=== PATIENT | female | born 2000 | race Caucasian/White ===

== ENCOUNTER 2024-11-19 11:11 | Outpatient (CLI) | payer BC | END 2024-11-19 11:12 | disposition home or self-care (01) | LOC: BICRAD 11:11 | PROVIDERS: ATTEND Family Medicine | DX: M79.671 Pain in right foot (principal) ==

== ENCOUNTER 2025-06-04 14:32 | Outpatient (CLI) | payer BC | END 2025-06-04 14:33 | disposition home or self-care (01) | LOC: ULT 14:32 | PROVIDERS: ATTEND Family Medicine | DX: N92.6 Irregular menstruation, unspecified (principal) | CPT/HCPCS: 76856 ==